=== PATIENT | male | born 1950 | race Caucasian/White ===

== ENCOUNTER → 2016-04-25 | Outpatient (CLI) | payer MEDICARE ==
--- NOTE | 2016-04-30 16:40 | MR ---
EXAMINATION TYPE: MR lumbar spine wo con DATE OF EXAM: 04/25/2016 1:01 PM COMPARISON: Prior MRI dated September HISTORY: intractable low back pain, spinal stenosis lsp TECHNIQUE: Multiplanar, multisequence images of the lumbar spine were acquired. L1-L2: No evident disc herniation or foraminal encroachment, no significant central stenosis. L2-L3: Facet arthropathy changes present presence of posterior lateral mass effect on the thecal sac. Circumferential disc bulge posteriorly causes anterior mass effect on the thecal sac. Bilateral fora marleny encroachment is present. On mild central canal stenosis. L3-L4: Intervertebral spacing changes present, there is loss of disc height and signal. No significan t central stenosis. No evident disc herniation. No significant foraminal encroachment. L4-L5: No evident disc herniation. Circumferential posterior extension of endplate disc complex is ec centric towards the right causing some anterolateral mass effect on the thecal sac, there may be cont act on the proximal L5 nerve root, some right-sided foraminal encroachment is suspected. There is a c ystic focus seen on axial image 8 of the T2 weighted data set showing a cystic focus measuring approx imately 11 mm causing some anterior lateral mass effect on the thecal sac. This may represent a synov ial cyst. There is resulting mild to moderate central canal stenosis. Intervertebral spacing material is present. Suspect some lateral recess stenosis. L5-S1: The anterolisthesis contributes to cause bilateral foraminal encroachment. No significant cent ral canal stenosis or sizable disc herniation. There is loss of disc height and signal, intervertebra l spacing changes present. Lumbar segments are intact. No paraspinal masses are identified. Conus medullaris has a normal appe arance. Posterior fusion change at L3-S1 is present, transpedicular screws and posterior rods cause s usceptibility artifact. Anterolisthesis grade 1 L5-S1 persists. Probable hemangioma at T12 is again s een and is stable, hyperintense on T1 and T2-weighted sequences. There is multilevel spondylosis with endplate discogenic marrow signal change. IMPRESSION: There is mass effect on the thecal sac at L4-5 eccentric towards the right, there may be synovial cys t, persistent disc bulge is noted eccentric towards the right. Foraminal encroachment is present on t he right. Additional findings above.
== END | disposition home or self-care (01) ==
LOC: RADMRIMAIN 12:12
PROVIDERS: ATTEND Neurological Surgery
DX: M48.06 Spinal stenosis, lumbar region (principal)
CPT/HCPCS: 72148

== ENCOUNTER → 2023-05-15 | Outpatient (CLI) | payer MEDICARE ==
--- NOTE | 2023-05-15 16:01 | XR ---
EXAMINATION TYPE: XR lumbosacral spine min 4V DATE OF EXAM: 05/15/2023 2:09 PM CLINICAL INDICATION:Male, 72 years old with history of M54.50 LOWER BACK PAIN; COMPARISON: 04/25/2016 TECHNIQUE: XR lumbosacral spine min 4V - Frontal, lateral , bilateral oblique and coned in L5-S1 late ral views of the spine. FINDINGS: Fixation hardware in place and intact. Grade 2 anterolisthesis of L5 on S1. No evidence of any acute osseous pathology. No evidence of loss of vertebral body height is seen.. Scattered disc s pace narrowing. Multilevel marginal osteophyte formation throughout the visualized spine. There is fa cet joint arthropathy throughout the spine. Scattered at least mild neural foraminal stenosis. Fixati on hardware in the spine with hardware intact. IMPRESSION: 1. No acute fracture. 2. Multilevel disc degeneration with post fixation changes. Hardware appears intact..
== END | disposition home or self-care (01) ==
LOC: RADXRMAIN 13:35
PROVIDERS: ATTEND Family Medicine
DX: M51.36 Other intervertebral disc degeneration, lumbar region (principal)
CPT/HCPCS: 72110

== ENCOUNTER → 2023-05-29 | Outpatient (CLI) | payer MEDICARE ==
--- NOTE | 2023-05-29 20:23 | CT ---
EXAMINATION TYPE: CT lumbar spine wo con DATE OF EXAM: 05/29/2023 COMPARISON: None HISTORY: 72-year-old male believes that a screw came loose, chronic lower back pain TECHNIQUE: Contiguous axial scanning of the lumbar spine without IV contrast. Coronal and sagittal re constructions performed. CT DLP: 1049.8 mGycm Automated exposure control for dose reduction was used. FINDINGS: Patient is status post L2-S1 posterior and interbody lumbar fusion. The S1 segment is incompletely im aged. Fixed grade 1 anterolisthesis at both L3-L4 and L5-S1. Left-sided laminotomy change L3 level. Extensive metal hardware artifact limiting the evaluation. No obvious screw loosening is seen. There may be moderate focal spinal canal stenosis at the L5-S1 level secondary to the anterolisthesis and posterior osteophytic ridging. On the right, changes result in moderate neuroforaminal stenoses at L4-L5 and L5-S1 and mild to moder ate at L2-L3. Mild at L3-L4. On the left, changes result in severe neuroforaminal stenosis L5-S1, moderate at L3-L4. Mild to moder ate at L2-L3. 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 IMPRESSION: 1. STATUS POST L2-S1 POSTERIOR AND INTERBODY LUMBAR FUSION. NOTE THAT THE S1 SEGMENT IS INCOMPLETELY IMAGED LIMITING EVALUATION. No obvious hardware loosening is identified. Clinically correlate. 2. There is fixed grade 1 anterolisthesis at both L3-L4 and L5-S1. Left-sided laminotomy change L3 le [place]. 3. There may be a moderate focal spinal canal stenosis at L5-S1 secondary to the anterolisthesis and posterior osteophytic ridging. 4. Severe left neural foraminal stenosis at L5-S1. Moderate right neuroforaminal stenosis at L4-L5 an d L5-S1 and on the left at L3-L4. 5. 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
== END | disposition home or self-care (01) ==
LOC: RADCTMAIN 15:38
PROVIDERS: ATTEND Neurological Surgery
DX: M43.17 Spondylolisthesis, lumbosacral region (principal); M48.061 Spinal stenosis, lumbar region without neurogenic claudication; M53.3 Sacrococcygeal disorders, not elsewhere classified; M99.73 Connective tissue and disc stenosis of intervertebral foramina of lumbar region; Z98.1 Arthrodesis status
CPT/HCPCS: 72131

== ENCOUNTER → 2023-07-18 | Outpatient (CLI) | payer MEDICARE ==
[2023-07-18 11:54] LABS: Appearance,Urine Clear (Clear); Bilirubin,Urine Negative (Negative); Blood,Urine Negative (Negative); Color,Urine Colorless; Glucose,Urine (UA) Negative (Negative); Ketones,Urine Negative (Negative); Leukocyte Esterase,Urine Negative (Negative); Nitrite,Urine Negative (Negative); PH, Urine 6.5 (5.0-8.0); Protein,Urine Negative (Negative); Specific Gravity,Urine 1.014 (1.001-1.035); Urobilinogen,Urine <2.0 mg/dL (<2.0)
--- NOTE | 2023-07-18 12:22 | XR ---
EXAMINATION TYPE: XR chest 2V DATE OF EXAM: 07/18/2023 10:37 AM CLINICAL INDICATION:Male, 72 years old with history of Z01.818 Pre Procedural testing R05.9 COUGH; PH H COMPARISON: None TECHNIQUE: XR chest 2V Frontal and lateral views of the chest. FINDINGS: Lungs/Pleura: There is no evidence of pleural effusion, focal consolidation, or pneumothorax. Pulmonary vascularity: Unremarkable. Heart/mediastinum: Cardiomediastinal silhouette is unremarkable. Musculoskeletal: No acute osseous pathology. IMPRESSION: No acute cardiopulmonary disease/process.
[2023-07-18 15:41] LABS: BUN/Creat Ratio 20.22 Ratio (12.00-20.00); Blood Urea Nitrogen 18.2 mg/dL (9.0-27.0); Chloride 104 mmol/L (96-109); Glucose 114 mg/dL (70-110); Potassium 4.4 mmol/L (3.5-5.5); Sodium 141 mmol/L (135-145)
[2023-07-18 15:42] LABS: Calcium 9.7 mg/dL (8.7-10.3); Carbon Dioxide 26.2 mmol/L (21.6-31.8)
[2023-07-18 15:49] LABS: HCT 42.2 % (39.6-50.0); HGB 14.7 g/dL (13.0-17.0); MCHC 34.8 g/dL (32.0-37.0); MCV 94.6 FL (80.0-97.0); Mean Platelet Volume 11.7 FL (9.5-12.2); NRBC Per 100 WBC 0 X 10*3/uL (0.00-0.01); Platelet Count 151 X 10*3/uL (140-440); RBC 4.46 X 10*6/uL (4.40-5.60); RDW 13.1 % (11.5-14.5); WBC 4.79 X 10*3/uL (4.50-10.00)
== END | disposition home or self-care (01) ==
LOC: LABPAT 10:17
PROVIDERS: ATTEND Neurological Surgery
DX: Z01.811 Encounter for preprocedural respiratory examination (principal); I44.0 Atrioventricular block, first degree; I49.8 Other specified cardiac arrhythmias; D84.9 Immunodeficiency, unspecified; R73.09 Other abnormal glucose; R05.9 Cough, unspecified
CPT/HCPCS: 71046; 80048; 81003; 83036; 85027; 93005